=== PATIENT | male | born 1955 | race Caucasian/White ===

== ENCOUNTER 2019-10-06 06:14 | Day surgery (SDC) | payer OTHER ==
[~2019-10-06] VITALS: Ht 185.4 cm; Wt 101.0 kg
[~2019-10-06 06:14] MED LIST: AMIO200T42 PO; APIX5TAB PO; DOCU-131 PO; GLIP5TAB10 PO; HYDR-3240 PO; INSU100I11 SQ-INSULIN; METO25TA91 PO; None per Pt.
[2019-10-06] MEDS ORDERED: LACTATED RINGERS 1,000 ML IV SCH (07:07)
[2019-10-06 07:12] VITALS: BP 129/84
[2019-10-06] MEDS ORDERED: MIDAZOLAM 1 MG/ML, 2ML ONE (07:16)
[2019-10-06] MEDS ORDERED: FENTANYL PF 250 MCG/5ML ONE (07:16)
[2019-10-06] MEDS ORDERED: SITA50TA PO (07:23)
[2019-10-06] MEDS ORDERED: AMIO100T4 PO (07:27)
[2019-10-06] MEDS ORDERED: DEXAMETHASONE 4 MG/ML, 1ML ONE (07:32)
[2019-10-06] MEDS ORDERED: CEFAZOLIN 1,000 MG ONE (07:32)
[2019-10-06] MEDS ORDERED: ONDANSETRON 2MG/ML, 2ML ONE (07:32)
[2019-10-06] MEDS ORDERED: ROCURONIUM 10 MG/ML,10ML ONE (07:32)
[2019-10-06] MEDS ORDERED: LABETALOL 5MG/ML, 20ML IV PRN (08:30)
[2019-10-06] MEDS ORDERED: ACETAMINOPHEN 325 MG TABLET PO PRN (08:30)
[2019-10-06] MEDS ORDERED: hydrALAzine 20 MG/ML, 1ML IV PRN (08:30)
[2019-10-06] MEDS ORDERED: PROMETHAZINE 25 MG/ML, 1ML IV PRN (08:30)
[2019-10-06] MEDS ORDERED: MEPERIDINE/PF 25MG/ML,1ML IVPush PRN (08:30)
[2019-10-06] MEDS ORDERED: HYDROmorphone 2 MG/ML, 1ML IVPush PRN (08:30)
[2019-10-06] MEDS ORDERED: OXYcodone 5 MG/5 ML ORAL.SOL UDC PO PRN (08:30)
[2019-10-06] MEDS ORDERED: FENTANYL PF 100 MCG/2ML ONE (10:07)
[2019-10-06] MEDS ORDERED: HYDROcodone/APAP 7.5-325MG/15ML UDC ONE (10:07)
[2019-10-06] MEDS: FENTANYL PF 100 MCG/2ML IV PRN ×4 (10:11→10:30)
[2019-10-06] MEDS ORDERED: HYDROcodone/APAP 7.5-325MG/15ML UDC PO PRN (10:30)
== END 2019-10-06 12:50 | disposition home or self-care (01) ==
LOC: OUT 06:14
PROVIDERS: ATTEND Urology
DX: N20.1 Calculus of ureter (principal); N32.89 Other specified disorders of bladder; N13.5 Crossing vessel and stricture of ureter without hydronephrosis; Z79.899 Other long term (current) drug therapy
CPT/HCPCS: 52356; 74018; 76000; 82360; 82962; 88300; C1769; C2617; J0690; J1100; J2250; J2405; J3010

== ENCOUNTER → 2019-10-10 | Outpatient (CLI) | payer OTHER ==
[~2019-10-10] MED LIST changes: +AMIO100T4 PO; +SITA50TA PO
== END | disposition home or self-care (01) ==
LOC: CFH 08:24
PROVIDERS: ATTEND Urology
DX: N20.0 Calculus of kidney (principal); D35.02 Benign neoplasm of left adrenal gland; R59.9 Enlarged lymph nodes, unspecified; Z90.89 Acquired absence of other organs
CPT/HCPCS: 74150

== ENCOUNTER 2019-10-14 22:04 | Inpatient (IN) | payer OTHER ==
[~2019-10-14] VITALS: Ht 185.4 cm; Wt 94.9 kg
[2019-10-14] MEDS ORDERED: ONDANSETRON 2MG/ML, 2ML IVPush ONE (23:00)
[2019-10-14] MEDS ORDERED: SODIUM CHLORIDE FLUSH 10ML SYR IVF ONE (23:00)
[2019-10-14] MEDS ORDERED: ONDANSETRON 2MG/ML, 2ML ONE (23:02)
[2019-10-14] MEDS ORDERED: MORPHINE SULFATE 4 MG/ML, 1ML ONE (23:03)
[2019-10-14] MEDS: MORPHINE SULFATE 4 MG/ML, 1ML IVPush PRN (23:21)
--- NOTE | 2019-10-14 23:29 | NUR ---
BLADDER SCANER 51ML
[2019-10-14 23:34] LABS: BASOPHILS # (AUTO) 0.04 x10^3/uL (0-0.1); BASOPHILS % (AUTO) 1 % (0-1); EOSINOPHILS # (AUTO) 0.34 x10^3/uL (0-0.4); EOSINOPHILS % (AUTO) 4 % (1-7); LYMPHOCYTES # (AUTO) 2.01 x10^3/uL (1-3.4); LYMPHOCYTES % (AUTO) 24 % (22-44); MD NO; MEAN CORPUSCULAR HEMOGLOBIN 29.2 pg (27.5-34.5); MEAN CORPUSCULAR HGB CONC 33.1 g/dL (33.2-36.2); MEAN CORPUSCULAR VOLUME 88.2 fL (81-97); MEAN PLATELET VOLUME 9.9 fL (7.4-10.4); MONOCYTES % (AUTO) 10 % (2-9); NEUTROPHILS # (AUTO) 5.16 x10^3/uL (1.8-6.8); NEUTROPHILS % (AUTO) 62 % (42-75); PLATELET COUNT 207 x10^3/uL (130-400); RED BLOOD COUNT 3.74 x10^6/uL (4.38-5.82); RED CELL DISTRIBUTION WIDTH 15.3 % (9.4-14.8)
[2019-10-14 23:39] LABS: ALANINE AMINOTRANSFERASE 19 U/L (12-78); ALBUMIN 3.1 g/dL (3.4-5.0); ANION GAP 12 mmol/L (5-15); CALCIUM 8.1 mg/dL (8.5-10.1); CHLORIDE 107 mmol/L (98-107)
[2019-10-14 23:41] LABS: ALKALINE PHOSPHATASE 95 U/L (45-117); BILIRUBIN,TOTAL 0.6 mg/dL (0.2-1.0); TOTAL PROTEIN 6.6 g/dL (6.4-8.2)
[2019-10-15] MEDS ORDERED: METRONIDAZOLE PMX 500MG/100ML 100 ML ONE (00:06)
[2019-10-15] MEDS ORDERED: CEFTRIAXONE PMX 1GM/50ML 50 ML ONE (00:07)
[2019-10-15] MEDS ORDERED: MORPHINE SULFATE 4 MG/ML, 1ML ONE (00:24)
[2019-10-15] MEDS: MORPHINE SULFATE 4 MG/ML, 1ML IVPush PRN (00:28)
[2019-10-15] MEDS ORDERED: CEFTRIAXONE PMX 1GM/50ML 50 ML IV ONE (00:30)
[2019-10-15] MEDS ORDERED: METRONIDAZOLE PMX 500MG/100ML 100 ML IV ONE (00:30)
[2019-10-15] MEDS ORDERED: FENTANYL PF 100 MCG/2ML ONE ×2 (00:34→01:10)
[2019-10-15] MEDS ORDERED: DEXAMETHASONE 4 MG/ML, 1ML ONE ×2 (00:34→01:10)
[2019-10-15] MEDS ORDERED: PROPOFOL 10 MG/ML, 20ML ONE ×2 (00:34→01:10)
[2019-10-15] MEDS ORDERED: ONDANSETRON 2MG/ML, 2ML ONE (00:34)
[2019-10-15] MEDS ORDERED: LIDOCAINE PF 2%, 5ML ONE (01:10)
[2019-10-15] MEDS ORDERED: MEPERIDINE/PF 25MG/ML,1ML IVPush PRN (01:30)
[2019-10-15] MEDS ORDERED: LORazepam 2 MG/ML, 1ML IVPush PRN (01:30)
[2019-10-15] MEDS ORDERED: OXYcodone 5 MG/5 ML ORAL.SOL UDC PO PRN (01:30)
[2019-10-15] MEDS ORDERED: hydrALAzine 20 MG/ML, 1ML IV PRN (01:30)
[2019-10-15] MEDS ORDERED: PROMETHAZINE 25 MG/ML, 1ML IV PRN (01:30)
[2019-10-15] MEDS ORDERED: FENTANYL PF 100 MCG/2ML IV PRN (01:30)
[2019-10-15] MEDS ORDERED: ACETAMINOPHEN 325 MG TABLET PO PRN ×2 (01:30→04:00)
[2019-10-15] MEDS ORDERED: HYDROmorphone 2 MG/ML, 1ML IVPush PRN (01:30)
[2019-10-15] MEDS ORDERED: LABETALOL 5MG/ML, 20ML IV PRN (01:30)
[2019-10-15] MEDS ORDERED: ONDANSETRON 2MG/ML, 2ML IV PRN (01:30)
[2019-10-15] MEDS ORDERED: ONDANSETRON ODT 8 MG PO PRN (01:30)
[2019-10-15] MEDS ORDERED: OMNIPAQUE 350 MG/ML ONE (01:59)
[2019-10-15] MEDS ORDERED: OMNIPAQUE 350 MG/ML, 50 ML BOTTLE ONE (01:59)
[2019-10-15 03:34] LABS: MICROSCOPIC INDICATED
[2019-10-15 03:35] LABS: CULTURE INDICATED? YES
[2019-10-15] MEDS ORDERED: AMIO200T42 PO (03:44)
[2019-10-15] MEDS ORDERED: SODIUM CHLORIDE 0.9% 1,000 ML IV SCH (04:00)
[2019-10-15] MEDS ORDERED: morphine SULFATE 10 MG/ML, 1ML IVPush PRN (04:00)
[2019-10-15] MEDS ORDERED: CEFTRIAXONE PMX 2GM/50ML 50 ML IV SCH (04:00)
[2019-10-15] MEDS ORDERED: LABETALOL 5 MG/ML SYR. (IV ONLY) IVPush PRN (04:00)
[2019-10-15] MEDS ORDERED: POLYETHYLENE GLYCOL 17 GM PACKET PO PRN (04:00)
[2019-10-15] MEDS ORDERED: ONDANSETRON 2MG/ML, 2ML IVPush PRN (04:00)
[2019-10-15] MEDS: SODIUM CHLORIDE 0.9% 1,000 ML IV SCH ×2 (06:25→19:47)
[2019-10-15] MEDS: METRONIDAZOLE PMX 500MG/100ML 100 ML IV SCH ×3 (06:25→19:41)
[2019-10-15] MEDS: INSULIN LISPRO 100 UNITS/ML, PEN SQ-INSULIN SCH ×3 (07:00→16:12)
[2019-10-15 08:08] VITALS: BP 119/77
[2019-10-15] MEDS: SENNA/DOCUSATE TABLET PO SCH (08:49)
[2019-10-15] MEDS: AMIODARONE 200 MG TABLET PO SCH (08:49)
[2019-10-15] MEDS: OXYcodone/APAP 5/325MG TABLET PO PRN ×3 (11:18→20:19)
[2019-10-15 12:18] LABS: CREATININE,URINE RANDOM 34.5 mg/dL
[2019-10-15] MEDS: CEFTRIAXONE PMX 1GM/50ML 50 ML IV SCH (12:47)
[2019-10-15 15:04] VITALS: BP 112/71
[2019-10-15 20:00] VITALS: BP 118/75
[2019-10-16] MEDS ORDERED: CEFTRIAXONE PMX 1GM/50ML 50 ML IV SCH (00:30)
[2019-10-16] MEDS: CEFTRIAXONE PMX 1GM/50ML 50 ML IV SCH ×2 (00:38→12:30)
[2019-10-16] MEDS: OXYcodone/APAP 5/325MG TABLET PO PRN ×3 (01:42→20:06)
[2019-10-16] MEDS: METRONIDAZOLE PMX 500MG/100ML 100 ML IV SCH ×2 (01:42→07:07)
[2019-10-16 01:44] VITALS: BP 104/61
[2019-10-16] MEDS: SODIUM CHLORIDE 0.9% 1,000 ML IV SCH ×2 (07:07→16:17)
[2019-10-16] MEDS: INSULIN LISPRO 100 UNITS/ML, PEN SQ-INSULIN SCH ×2 (07:30→16:17)
[2019-10-16 08:27] LABS: BASOPHILS # (AUTO) 0.03 x10^3/uL (0-0.1); BASOPHILS % (AUTO) 0 % (0-1); EOSINOPHILS # (AUTO) 0.07 x10^3/uL (0-0.4); EOSINOPHILS % (AUTO) 1 % (1-7); LYMPHOCYTES % (AUTO) 20 % (22-44); MD NO; MEAN CORPUSCULAR HEMOGLOBIN 28.6 pg (27.5-34.5); MEAN CORPUSCULAR HGB CONC 32.9 g/dL (33.2-36.2); MEAN CORPUSCULAR VOLUME 86.8 fL (81-97); MONOCYTES # (AUTO) 0.61 x10^3/uL (0.2-0.8); MONOCYTES % (AUTO) 7 % (2-9); NEUTROPHILS # (AUTO) 6.75 x10^3/uL (1.8-6.8); NEUTROPHILS % (AUTO) 73 % (42-75); PLATELET COUNT 277 x10^3/uL (130-400); RED BLOOD COUNT 4.07 x10^6/uL (4.38-5.82); RED CELL DISTRIBUTION WIDTH 15.4 % (9.4-14.8)
[2019-10-16 08:36] LABS: ANION GAP 8 mmol/L (5-15); CALCIUM 8.4 mg/dL (8.5-10.1); CHLORIDE 106 mmol/L (98-107); CREATININE 8.49 mg/dL (0.7-1.3)
[2019-10-16 08:47] VITALS: BP 108/66
[2019-10-16 08:52] LABS: HEMOGLOBIN A1C 6.5 % (4.2-6.3)
[2019-10-16] MEDS: SENNA/DOCUSATE TABLET PO SCH (09:00)
[2019-10-16] MEDS: POLYETHYLENE GLYCOL 17 GM PACKET PO SCH (09:41)
[2019-10-16] MEDS: AMIODARONE 200 MG TABLET PO SCH (09:47)
[2019-10-16 13:27] VITALS: BP 116/68
[2019-10-16] MEDS: CIPROFLOXACIN 250 MG TABLET PO SCH ×2 (14:15→20:57)
[2019-10-16] MEDS: metroNIDAZOLE 500 MG TABLET PO SCH ×2 (14:15→23:07)
[2019-10-16 19:57] VITALS: BP 114/69
[2019-10-17 01:37] VITALS: BP 143/79
[2019-10-17] MEDS: metroNIDAZOLE 500 MG TABLET PO SCH ×2 (07:11→16:55)
[2019-10-17 07:27] LABS: BASOPHILS # (AUTO) 0.03 x10^3/uL (0-0.1); BASOPHILS % (AUTO) 0 % (0-1); EOSINOPHILS # (AUTO) 0.16 x10^3/uL (0-0.4); EOSINOPHILS % (AUTO) 2 % (1-7); LYMPHOCYTES # (AUTO) 3.26 x10^3/uL (1-3.4); LYMPHOCYTES % (AUTO) 37 % (22-44); MD NO; MEAN CORPUSCULAR HEMOGLOBIN 28.7 pg (27.5-34.5); MEAN PLATELET VOLUME 9.4 fL (7.4-10.4); MONOCYTES # (AUTO) 0.78 x10^3/uL (0.2-0.8); MONOCYTES % (AUTO) 9 % (2-9); NEUTROPHILS # (AUTO) 4.68 x10^3/uL (1.8-6.8); NEUTROPHILS % (AUTO) 53 % (42-75); PLATELET COUNT 235 x10^3/uL (130-400); RED BLOOD COUNT 4.02 x10^6/uL (4.38-5.82); RED CELL DISTRIBUTION WIDTH 15.4 % (9.4-14.8)
[2019-10-17] MEDS: INSULIN LISPRO 100 UNITS/ML, PEN SQ-INSULIN SCH ×2 (07:30→16:30)
[2019-10-17 07:37] LABS: CALCIUM 8.3 mg/dL (8.5-10.1); CREATININE 6.09 mg/dL (0.7-1.3)
[2019-10-17 07:42] LABS: ANION GAP 9 mmol/L (5-15); CHLORIDE 106 mmol/L (98-107)
[2019-10-17 08:23] VITALS: BP 113/72
[2019-10-17] MEDS: CIPROFLOXACIN 250 MG TABLET PO SCH ×2 (08:38→21:57)
[2019-10-17] MEDS: AMIODARONE 200 MG TABLET PO SCH (08:38)
[2019-10-17] MEDS: POLYETHYLENE GLYCOL 17 GM PACKET PO SCH (08:39)
[2019-10-17] MEDS: SENNA/DOCUSATE TABLET PO SCH (08:40)
[2019-10-17] MEDS: OXYcodone/APAP 5/325MG TABLET PO PRN ×2 (12:17→21:08)
[2019-10-17 14:09] VITALS: BP 110/67
[2019-10-17 20:18] VITALS: BP 120/66
[2019-10-18 01:08] VITALS: BP 102/61
[2019-10-18] MEDS: metroNIDAZOLE 500 MG TABLET PO SCH ×2 (01:10→09:54)
[2019-10-18] MEDS: OXYcodone/APAP 5/325MG TABLET PO PRN ×2 (01:12→09:58)
[2019-10-18] MEDS: INSULIN LISPRO 100 UNITS/ML, PEN SQ-INSULIN SCH (07:30)
[2019-10-18 08:18] VITALS: BP 111/68
[2019-10-18 08:24] LABS: ALBUMIN 3.6 g/dL (3.4-5.0); ANION GAP 10 mmol/L (5-15); CALCIUM 8.6 mg/dL (8.5-10.1); CHLORIDE 105 mmol/L (98-107)
[2019-10-18 08:28] LABS: ALANINE AMINOTRANSFERASE 26 U/L (12-78); ALKALINE PHOSPHATASE 93 U/L (45-117); BILIRUBIN,TOTAL 0.6 mg/dL (0.2-1.0); TOTAL PROTEIN 7.4 g/dL (6.4-8.2)
[2019-10-18] MEDS: CIPROFLOXACIN 250 MG TABLET PO SCH (09:54)
[2019-10-18] MEDS: AMIODARONE 200 MG TABLET PO SCH (09:54)
[2019-10-18] MEDS: SENNA/DOCUSATE TABLET PO SCH (09:55)
[2019-10-18] MEDS: POLYETHYLENE GLYCOL 17 GM PACKET PO SCH (09:55)
[2019-10-18] MEDS ORDERED: OXYC-302 PO ×2 (10:34→12:06)
[2019-10-18] MEDS ORDERED: METR500T PO (10:56)
[2019-10-18] MEDS ORDERED: CIPR250T27 PO (10:56)
[2019-10-18 15:53] LABS: TOTAL VOLUME 24HRS,URINE 2150 mL
== END 2019-10-18 12:49 | disposition home or self-care (01) | DRG 660 ==
LOC: ED 22:46 → EDIP 10-15 00:03 → 4NE 10-15 02:38 → DCLOUNGE 10-18 12:37
PROVIDERS: ADMIT Urology; ATTEND Hospitalist
PROC: BT1FZZZ Fluoroscopy of Left Kidney, Ureter and Bladder (ICD-10-PCS; 2019-10-15)
PROC: 0T778DZ Dilation of Left Ureter with Intraluminal Device, Via Natural or Artificial Opening Endoscopic (ICD-10-PCS; principal; 2019-10-15 00:45)
DX: N13.2 Hydronephrosis with renal and ureteral calculous obstruction (principal); K57.32 Diverticulitis of large intestine without perforation or abscess without bleeding; I50.22 Chronic systolic (congestive) heart failure; E87.2 Acidosis; N17.9 Acute kidney failure, unspecified; D64.9 Anemia, unspecified; E11.9 Type 2 diabetes mellitus without complications; E27.8 Other specified disorders of adrenal gland; G47.33 Obstructive sleep apnea (adult) (pediatric); I11.0 Hypertensive heart disease with heart failure; I48.91 Unspecified atrial fibrillation; K59.00 Constipation, unspecified; K80.20 Calculus of gallbladder without cholecystitis without obstruction; Z79.84 Long term (current) use of oral hypoglycemic drugs; Z80.42 Family history of malignant neoplasm of prostate; Z82.5 Family history of asthma and other chronic lower respiratory diseases; Z85.528 Personal history of other malignant neoplasm of kidney; Z90.5 Acquired absence of kidney
CPT/HCPCS: 36415; 74176; 74420; 80048; 80053; 81001; 81050; 82310; 82436; 82507; 82570; 82607; 82962; 83036; 83690; 83735; 83945; 84105; 84300; 84443; 84560; 85025; 87070; 87075; 87086; 87205; 96374; 96375; G0378; J0690; J0696; J1100; J2405; J2704; J3010; Q9967; C1758; C1769; C2617; J2270; J7030

== ENCOUNTER 2019-11-24 12:15 | Outpatient (CLI) | payer OTHER ==
[~2019-11-24 12:15] MED LIST changes: +CIPR250T27 PO; +METR500T PO; +OXYC-302 PO
== END 2019-11-24 23:59 | disposition home or self-care (01) ==
LOC: CFH 12:15
PROVIDERS: ATTEND Urology
DX: N20.1 Calculus of ureter (principal); T82.897A Other specified complication of cardiac prosthetic devices, implants and grafts, initial encounter
CPT/HCPCS: 74018

== ENCOUNTER 2019-11-25 14:29 | Day surgery (SDC) | payer OTHER ==
[~2019-11-25] VITALS: Ht 185.4 cm; Wt 99.0 kg
[2019-11-25 14:23] VITALS: BP 139/94
[~2019-11-25 14:29] MED LIST changes: +LACTATED RINGERS 1,000 ML IV SCH
[2019-11-25] MEDS ORDERED: PLEASE ENTER HEIGHT AND WEIGHT MC SCH (15:00)
[2019-11-25] MEDS ORDERED: MIDAZOLAM 1 MG/ML, 2ML ONE (15:58)
[2019-11-25] MEDS ORDERED: FENTANYL PF 100 MCG/2ML ONE (15:58)
[2019-11-25] MEDS ORDERED: HALOPERIDOL 5 MG/ML IV PRN (16:00)
[2019-11-25] MEDS ORDERED: FENTANYL PF 100 MCG/2ML IV PRN (16:00)
[2019-11-25] MEDS ORDERED: MEPERIDINE/PF 25MG/ML,1ML IVPush PRN (16:00)
[2019-11-25] MEDS ORDERED: HYDROmorphone 1 MG/ML, 1ML INJ IVPush PRN (16:00)
[2019-11-25] MEDS ORDERED: OXYcodone 5 MG/5 ML ORAL.SOL UDC PO PRN (16:00)
[2019-11-25] MEDS ORDERED: PROMETHAZINE 25 MG/ML, 1ML IV PRN (16:00)
[2019-11-25] MEDS ORDERED: hydrALAzine 20 MG/ML, 1ML IV PRN (16:00)
[2019-11-25] MEDS ORDERED: LABETALOL 5MG/ML, 20ML IV PRN (16:00)
[2019-11-25 16:08] LABS: MICROSCOPIC AUTO
[2019-11-25 16:09] LABS: CULTURE INDICATED? YES
[2019-11-25] MEDS ORDERED: PROPOFOL 10 MG/ML, 20ML ONE (17:43)
[2019-11-25] MEDS ORDERED: DEXAMETHASONE 4 MG/ML, 1ML ONE (17:43)
[2019-11-25] MEDS ORDERED: ONDANSETRON 2MG/ML, 2ML ONE (17:43)
[2019-11-25] MEDS ORDERED: CEFAZOLIN 1,000 MG ONE (17:43)
[2019-12-01] MEDS ORDERED: ATOR-2 PO (10:57)
[2019-12-01] MEDS ORDERED: APIX2.5T PO (10:57)
[2019-12-01] MEDS ORDERED: ASPI-515 PO/NG ×3 (10:57→11:09)
== END 2019-11-25 20:27 | disposition home or self-care (01) ==
LOC: OR 14:29 → 4NE 18:39 → OR 20:27
PROVIDERS: ATTEND Urology
DX: N20.2 Calculus of kidney with calculus of ureter (principal); I48.91 Unspecified atrial fibrillation; E11.22 Type 2 diabetes mellitus with diabetic chronic kidney disease; N18.9 Chronic kidney disease, unspecified; Z72.89 Other problems related to lifestyle; Z90.5 Acquired absence of kidney; Z79.84 Long term (current) use of oral hypoglycemic drugs
CPT/HCPCS: 52356; 74018; 76000; 81001; 87086; C1769; C2617; J0690; J1100; J2250; J2405; J2704; J3010; G0378

== ENCOUNTER 2020-05-22 09:17 | Emergency (ER) | payer OTHER ==
[~2020-05-22] VITALS: Ht 185.4 cm; Wt 109.8 kg
[~2020-05-22 09:17] MED LIST changes: +APIX2.5T PO; +ASPI-515 PO/NG; +ATOR-2 PO; -LACTATED RINGERS 1,000 ML IV SCH
[2020-05-22 09:22] VITALS: BP 119/82
--- NOTE | 2020-05-22 10:20 | NUR ---
PER LENA BEASLEY STUDENT. PT WITHOUT NEURO DEFICITS. PAIN TO L SIDE HEAD FOR FIVE DAYS, RANGING 1-10 WITH PINPOINT TENDERNESS BEHIND L EAR. PT DENIES NEURO DEFICITS WHICH HE HAD WITH TIA IN 11/2019. PT ON ELIQUIS. CALL LIGHT WITHIN REACH, AWAITING ORDERS.
[2020-05-22] MEDS ORDERED: LIDOCAINE-MPF 1%, 5ML ONE (10:34)
[2020-05-22] MEDS ORDERED: LIDOCAINE 1%, 10ML INFIL ONE (11:00)
== END 2020-05-22 11:13 | disposition home or self-care (01) ==
LOC: ED 09:19
DX: G44.209 Tension-type headache, unspecified, not intractable (principal); M54.2 Cervicalgia; E78.5 Hyperlipidemia, unspecified; Z86.73 Personal history of transient ischemic attack (TIA), and cerebral infarction without residual deficits; Z85.53 Personal history of malignant neoplasm of renal pelvis; Z90.5 Acquired absence of kidney; Z79.899 Other long term (current) drug therapy
CPT/HCPCS: 99281

== ENCOUNTER → 2020-05-23 | Outpatient (CLI) | payer OTHER | END | disposition home or self-care (01) | LOC: CFH 06:42 | PROVIDERS: ATTEND Internal Medicine Cardiovascular Disease | DX: I08.2 Rheumatic disorders of both aortic and tricuspid valves (principal); I48.0 Paroxysmal atrial fibrillation; I42.9 Cardiomyopathy, unspecified | CPT/HCPCS: 78452; 93017; 93306; A9502 ==

== ENCOUNTER 2020-11-10 18:47 | Emergency (ER) | payer OTHER ==
[~2020-11-10] VITALS: Ht 188 cm; Wt 116.0 kg
[2020-11-10 19:43] LABS: BASOPHILS % (AUTO) 1 % (0-1); EOSINOPHILS % (AUTO) 2 % (1-7); LYMPHOCYTES % (AUTO) 24 % (22-44); MD NO; MEAN CORPUSCULAR HEMOGLOBIN 28.9 pg (27.5-34.5); MEAN CORPUSCULAR HGB CONC 33.6 g/dL (33.2-36.2); MEAN PLATELET VOLUME 9.1 fL (7.4-10.4); MONOCYTES % (AUTO) 8 % (2-9); NEUTROPHILS % (AUTO) 66 % (42-75); PLATELET COUNT 267 x10^3/uL (130-400); RED BLOOD COUNT 4.92 x10^6/uL (4.38-5.82); RED CELL DISTRIBUTION WIDTH 14.2 % (9.4-14.8)
[2020-11-10 19:52] LABS: ANION GAP 9 mmol/L (5-15); CALCIUM 9.5 mg/dL (8.5-10.1); CHLORIDE 107 mmol/L (98-107); CREATININE 1.91 mg/dL (0.7-1.3)
[2020-11-10 20:34] LABS: MICROSCOPIC AUTO
[2020-11-11 01:45] VITALS: BP 132/83
--- NOTE | 2020-11-11 05:47 | NUR ---
NIL X1@ [id number]
--- NOTE | 2020-11-11 05:59 | NUR ---
NIL X2@ 0626
--- NOTE | 2020-11-11 06:14 | NUR ---
NIL IN HIWOT X3
[2020-11-11] MEDS ORDERED: APIX5TAB PO (12:22)
[2020-11-11] MEDS ORDERED: FLEC100T PO (12:22)
[2020-11-11] MEDS ORDERED: GLIP5TAB10 PO (12:22)
== END 2020-11-11 06:16 | disposition left against medical advice (07) ==
LOC: ED 22:20
DX: R31.9 Hematuria, unspecified (principal); R10.9 Unspecified abdominal pain
CPT/HCPCS: 36415; 80048; 81001; 85025; 87086; 99283

== ENCOUNTER 2020-11-11 11:37 | Emergency (ER) | payer OTHER ==
[~2020-11-11] VITALS: Ht 188 cm; Wt 115.8 kg
[2020-11-11 11:39] VITALS: BP 133/88
--- NOTE | 2020-11-11 11:46 | NUR ---
AMBULATORY TO ED ROOM 6 W/ STEADY GAIT
--- NOTE | 2020-11-11 11:47 | NUR ---
PT STATES HE CAME TO ED YESTERDAY, WAITING ABOUT 8 HRS BEFORE LEAVING. HAD LAB TESTS DONE, BUT DIDN'T SEE PROVIDER. STATES HE CAME IN FOR BLOOD IN URINE. HX OF KIDNEY CA.
--- NOTE | 2020-11-11 11:49 | NUR ---
TRUDY TALAVERA AT BS
--- NOTE | 2020-11-11 12:06 | NUR ---
PT NOT CURRENTLY IN ROOM
--- NOTE | 2020-11-11 12:18 | NUR ---
PT RETURNED FROM RADIOLOGY
[2020-11-11] MEDS ORDERED: FLEC100T PO (12:22)
[2020-11-11] MEDS ORDERED: APIX5TAB PO (12:22)
[2020-11-11] MEDS ORDERED: GLIP5TAB10 PO (12:22)
--- NOTE | 2020-11-11 12:24 | NUR ---
PT DENIES BLOOD IN URINE TODAY, DENIES PAIN, URINARY DIFFICULTY.
--- NOTE | 2020-11-11 12:25 | NUR ---
PT UNHAPPY ABOUT REQUEST TO [facility]. PT AWAITING U/S.
--- NOTE | 2020-11-11 13:11 | NUR ---
U/S NOW AT BS. PT STILL FULLY DRESSED.
== END 2020-11-11 13:55 | disposition home or self-care (01) ==
LOC: ED 12:18
DX: R31.0 Gross hematuria (principal); E78.5 Hyperlipidemia, unspecified; Z86.73 Personal history of transient ischemic attack (TIA), and cerebral infarction without residual deficits; Z85.528 Personal history of other malignant neoplasm of kidney
CPT/HCPCS: 74018; 76770; 99284